=== PATIENT | male | born 1940 | race Caucasian/White ===

== ENCOUNTER 2017-07-16 07:00 | Day surgery (SDC) | payer OTHER ==
[~2017-07-16] VITALS: Ht 167.6 cm; Wt 80.7 kg
[~2017-07-16 07:00] MED LIST: CARAFATE1 GM PO; COZAAR100 MG PO; HUMALOG MI100 UNIT/2; LANTUS SOL100 UNIT/1; NORVASC5 MG PO; OMEPRAZOLE40 MG PO; TRANXENE T-TAB7.5 MG PO; ZOLOFT20 MG/1 ML PO
[2017-07-17] MEDS ORDERED: CLONAZEPAM1 MG PO (12:39)
[2017-07-17] MEDS ORDERED: PERCOCET 5-3251 EACH PO (12:39)
[2017-07-17] MEDS ORDERED: DOCUSATE SODIU100 MG PO (12:39)
[2017-07-17] MEDS ORDERED: AMOX-CLAV 875-1 EACH PO (12:39)
[2017-07-17] MEDS ORDERED: GABAPENTIN800 MG PO (12:39)
== END 2017-07-17 13:00 | disposition home or self-care (01) ==
LOC: CIR.AMB 07:00 → EDSTATUS 08:15 → SURH 08:15 → PED 15:56 → O/R 15:56 → CIR.AMB 07-17 13:00 → PED 07-17 15:48 → O/R 07-17 15:48
DX: M48.07 Spinal stenosis, lumbosacral region (principal); I10 Essential (primary) hypertension; E11.9 Type 2 diabetes mellitus without complications